=== PATIENT | male | born 1945 | race Caucasian/White ===

== ENCOUNTER → 2023-09-16 | Outpatient (CLI) | payer MEDICARE, BC ==
--- NOTE | 2023-09-16 10:08 | CT ---
EXAMINATION TYPE: CT right knee - DAMION Protocol CT DLP: 827 mGycm, Automated exposure control for dose reduction was used. DATE OF EXAM: 09/16/2023 9:25 AM COMPARISON: Extremity radiograph same day. CLINICAL INDICATION:Male, 78 years old with history of M17.11 UNILATERAL PRIMARY OSTEOARTHRITIS, RIGH T KN; PHH, arthritis TECHNIQUE: Axial images were obtained of the CT right knee - DAMION Protocol, Additional coronal and sa gittal reformatted images and soft tissue and bone window were obtained for review. Contrast used: mL of , (None if empty) Oral contrast used: (None if empty) FINDINGS: The visualized portion of the hips demonstrate mild osteoarthrosis changes with osteophyte formation of the acetabulum. No acute intrapelvic process. The bony structures of the pelvis are intact. The visualized knee demonstrates osteophyte formation of the tibial plateau, the patella and femoral condyles. There is joint space narrowing and subchondral sclerosis most pronounced in the medial asp ect of the right knee. No evidence of fracture. Visualized ankle demonstrates multifocal osteoarthrosis changes with osteophyte formation and mild chela int space narrowing worse in the medial joints bilaterally. Subchondral sclerosis. No evidence of fra ctures. There joint bodies noted within the tibiotalar joint on the left ankle. Scattered colonic diverticula throughout the visualized colon. Bilateral fat-containing inguinal akira ias. IMPRESSION: 1. Moderate to severe osteoarthrosis changes of the knees worse in the right knee and medial aspect. 2. Multiple calcified joint bodies in the left tibiotalar joint.
== END | disposition home or self-care (01) ==
LOC: RADCTMAIN 08:16
PROVIDERS: ATTEND Orthopaedic Surgery
DX: M17.0 Bilateral primary osteoarthritis of knee (principal); M25.872 Other specified joint disorders, left ankle and foot

== ENCOUNTER → 2023-09-16 | Outpatient (CLI) | payer MEDICARE, BC ==
[2023-09-16 10:24] LABS: Partial Thromboplastin Time 26.2 sec (22.0-30.0); Prothrombin Time 10.8 sec (10.0-12.5)
[2023-09-16 15:35] LABS: HCT 37.6 % (39.6-50.0); HGB 12.3 g/dL (13.0-17.0); MCH 29.9 pg (27.0-32.0); MCHC 32.7 g/dL (32.0-37.0); MCV 91.5 FL (80.0-97.0); Mean Platelet Volume 10.1 FL (9.5-12.2); NRBC Per 100 WBC 0 X 10*3/uL (0.00-0.01); Platelet Count 386 X 10*3/uL (140-440); RBC 4.11 X 10*6/uL (4.40-5.60); RDW 13.4 % (11.5-14.5); WBC 6.96 X 10*3/uL (4.50-10.00)
[2023-09-16 15:53] LABS: ALT 61 U/L (10-49); AST 28 U/L (14-35); Albumin 4.2 g/dL (3.8-4.9); Albumin/Globulin Ratio 1.68 Ratio (1.60-3.17); Alkaline Phosphatase 161 U/L (41-126); BUN/Creat Ratio 14.82 Ratio (12.00-20.00); Blood Urea Nitrogen 16.3 mg/dL (9.0-27.0); Calcium 9.8 mg/dL (8.7-10.3); Carbon Dioxide 23.5 mmol/L (21.6-31.8); Chloride 102 mmol/L (96-109); Globulin 2.5 g/dL (1.6-3.3); Glucose 177 mg/dL (70-110); Potassium 4.3 mmol/L (3.5-5.5); Sodium 140 mmol/L (135-145); Total Bilirubin 0.2 mg/dL (0.3-1.2); Total Protein 6.7 g/dL (6.2-8.2)
== END | disposition home or self-care (01) ==
LOC: LABPAT 08:56
PROVIDERS: ATTEND Orthopaedic Surgery
DX: Z01.812 Encounter for preprocedural laboratory examination (principal); Z22.322 Carrier or suspected carrier of Methicillin resistant Staphylococcus aureus; M17.11 Unilateral primary osteoarthritis, right knee; E11.9 Type 2 diabetes mellitus without complications; I25.2 Old myocardial infarction; R94.31 Abnormal electrocardiogram [ECG] [EKG]
CPT/HCPCS: 36415; 80053; 83036; 85027; 85610; 85730; 87070; 93005

== ENCOUNTER 2023-10-04 05:40 | Day surgery (SDC) | payer MEDICARE, BC ==
[2023-10-04] MEDS ORDERED: LIDOCAINE 1% (10MG/ML) FOR IV START INTRADERMA PRN (05:55)
[2023-10-04] MEDS ORDERED: TRANEXAMIC 1,000 MG/100ML-NACL 1,000 MG in SALINE 1 100ML.BAG IVPB PRN (06:00)
[2023-10-04] MEDS ORDERED: ONDANSETRON 4 MG/2 ML VIAL IVP PRN ×2 (06:00→09:28)
[2023-10-04] MEDS ORDERED: TRANEXAMIC 1,000 MG/100ML-NACL 1,000 MG in SALINE 1 100ML.BAG IV PRN (06:00)
[2023-10-04] MEDS ORDERED: FAMOTIDINE 20 MG/2 ML VIAL IVP PRN (06:00)
[2023-10-04] MEDS: LACTATED RINGERS 1,000 ML IV ONE ×2 (06:24→10:49)
[2023-10-04] MEDS: oxyCODONE ER 10 MG TAB.ER.12H PO PRN (06:25)
[2023-10-04] MEDS: DOCUSATE 100 MG CAP PO PRN (06:25)
[2023-10-04] MEDS: ACETAMINOPHEN TAB 500 MG TAB PO PRN (06:25)
[2023-10-04] MEDS: DEXAMETHASONE SOD PHOSPHATE 10 MG/ML 1 ML VIAL IV PRN (06:49)
[2023-10-04] MEDS: KETOROLAC 15 MG/ML 1 ML VIAL IVP PRN (06:49)
[2023-10-04] MEDS: ONDANSETRON 4 MG/2 ML VIAL IVP ONE (06:49)
[2023-10-04] MEDS ORDERED: MIDAZOLAM 2 MG/2 ML VIAL IV PRN (07:00)
[2023-10-04] MEDS ORDERED: HYDROmorphone 0.5 MG/0.5 ML SYRINGE IVP PRN ×4 (07:00→09:28)
[2023-10-04] MEDS: MIDAZOLAM 2 MG/2 ML VIAL IVP ONE (07:02)
--- NOTE | 2023-10-04 07:16 | P.ANPRN ---
Procedure Note - Anesthesia - Nerve Block Performed Right [place] Single Time Out Performed: Yes Date of Procedure: 10/04/23 Procedure Start Time: 07:01 Procedure Stop Time: 07:05 Location of Patient: PreOp Indication: Acute Post-Operative Pain, Analgesia, Requested by Surgeon Sedation Type: Sedate with meaningful contact maintained Preparation: Sterile Prep Position: Left Lateral Catheter: None Needle Types: Pajunk Needle Gauge: 21 Ultrasound used to visualize needle placement: Yes Ultrasound used to observe medication spread: Yes Injectate: 0.5% Ropivacaine (see comment for volume) ([id number] [id number]. AttemptX1) Blood Aspirated: No Pain Paresthesia on Injection Noted: No Resistance on Injection: Normal Image Stored and Saved: Yes Events: Uneventful and Well Tolerated
--- NOTE | 2023-10-04 07:18 | P.ANPRN ---
Procedure Note - Anesthesia - Nerve Block Performed Right Adductor Canal Single Time Out Performed: Yes Date of Procedure: 10/04/23 Procedure Start Time: :06 Procedure Stop Time: 07:10 Location of Patient: PreOp Indication: Acute Post-Operative Pain, Analgesia, Requested by Surgeon Sedation Type: Sedate with meaningful contact maintained Preparation: Sterile Prep Position: Supine Catheter: None Needle Types: Pajunk Needle Gauge: 21 Ultrasound used to visualize needle placement: Yes Ultrasound used to observe medication spread: Yes Injectate: 0.5% Ropivacaine (see comment for volume) ([id number]. AttemptX1) Blood Aspirated: No Pain Paresthesia on Injection Noted: No Resistance on Injection: Normal Image Stored and Saved: Yes Events: Uneventful and Well Tolerated
[2023-10-04] MEDS ORDERED: NEOSTIGMINE 1 MG/ML 10 ML VIAL ONE (07:29)
[2023-10-04] MEDS ORDERED: SUCCINYLCHOLINE CHLORIDE 200 MG/10 ML VIAL IV ONE (07:29)
[2023-10-04] MEDS ORDERED: fentaNYL (PF) 50 MCG/ML 2 ML AMP ONE (07:29)
[2023-10-04] MEDS ORDERED: HYDROmorphone (PF) 1 MG/ML ONE (07:29)
[2023-10-04] MEDS ORDERED: TRANEXAMIC 1,000 MG/100ML-NACL PREMIX BAG ONE (07:29)
[2023-10-04] MEDS ORDERED: ROCURONIUM 10 MG/ML (5 ML VIAL) IV ONE (07:29)
[2023-10-04] MEDS ORDERED: PROPOFOL 10 MG/ML 20 ML VIAL IV ONE (07:29)
[2023-10-04] MEDS ORDERED: ePHEDrine 50 MG/ML 1 ML VIAL ONE (07:29)
[2023-10-04] MEDS ORDERED: LIDOCAINE 1% INJ 10MG/ML (20 ML MDV) ONE (07:29)
[2023-10-04] MEDS ORDERED: ROPIVACAINE 5 MG/ML 30 ML VIAL ONE (07:29)
[2023-10-04] MEDS ORDERED: GLYCOPYRROLATE 0.2 MG/ML 2 ML VIAL ONE (07:29)
[2023-10-04] MEDS ORDERED: DEXAMETHASONE SOD PHOSPHATE 4 MG/ML 1 ML VIAL ONE (07:29)
[2023-10-04] MEDS: ROPIVACAINE/EPI/CLONIDINE/KET 50 ML SYRINGE MISCELLANE PRN (08:17)
[2023-10-04] MEDS ORDERED: traMADol 50 MG TAB PO PRN (09:28)
[2023-10-04] MEDS ORDERED: NA PHOS,M-B/NA PHOS,DI-BA 133 ML ENEMA RECTAL PRN (09:28)
[2023-10-04] MEDS ORDERED: bisacodyL 10 MG SUPP RECTAL PRN (09:28)
[2023-10-04] MEDS ORDERED: ACETAMINOPHEN TAB 325 MG TAB PO PRN (09:28)
[2023-10-04] MEDS ORDERED: MAGNESIUM HYDROXIDE 2,400 MG/30 ML CUP PO PRN (09:28)
[2023-10-04] MEDS ORDERED: NALOXONE 0.4 MG/ML 1 ML VIAL IV PRN (09:28)
[2023-10-04] MEDS ORDERED: HYDROcodone/APAP 7.5-325MG 1 EACH TAB PO PRN (09:31)
--- NOTE | 2023-10-04 09:52 | P.OP ---
Date of Procedure: 10/04/23 Preoperative Diagnosis: severe right knee osteoarthritis Postoperative Diagnosis: same Procedure(s) Performed: 1. Right total knee arthroplasty 2. Computer assisted musculoskeletal navigation using CT/MRI images Implants: 1. Vilma Triathlon CR Femur Size #5 2. Vilma Triathlon [place] Tibial Base Size #5 3. Haskins Triathlon CS poly Size #9 4. Haskins Triathlon all poly patella, Size #35 Anesthesia: JAYDENA, regional Surgeon: Jesus Thompson Affirmative Action Specialist #1: Jono Reveles Estimated Blood Loss (ml): 100 IV fluids (ml): 900 Pathology: none sent Condition: stable Disposition: PACU Indications for Procedure: I met with the patient preoperatively in the office setting and discussed treatment of their symptomatic knee arthritis. They failed a long course of nonsurgical treatment and elected to proceed with an elective total knee replacement. I discussed the potential risks and complications at length and gave them ample time to ask questions. Risks discussed included: risks from anesthesia, superficial site surgical infection, acute and/or chronic periprosthetic joint infection, delayed wound healing, drainage, wound necrosis, instability, stiffness, stiffness requiring manipulation and/or revision surgery, damage to local blood vessels or nerves, aseptic loosening of the implants, extensor mechanism issues including disruption, patellar maltracking, avascular necrosis etc., continued or worsened knee pain, generalized dissatisfaction with surgical outcome, need for revision surgery, an inability to regain preinjury level of function, DVT, PE, other medical complications, and possibly loss of life or limb. The patient voiced their understanding that while these are the most common complications other less common complications are possible. They provided both their verbal and written consent to go forward with surgery. Description of Procedure: The patient was identified in preoperative holding and the correct operative extremity was verified and marked with a marker. I reviewed the consent form with the patient at length. All of their questions were answered. The patient was given a block by anesthesia. They were then brought back to the operating room. They were transferred onto the operating room table where a general anesthetic, preoperative antibiotics, and tranexamic acid were administered by anesthesia. A tourniquet was applied to the proximal aspect of the operative extremity. The contralateral extremity was padded under the heel and secured to the operating room table with a nonsterile blue towel and tape. The ipsilateral arm was carefully draped across the patient's chest and secured with a pillow and foam. A post was applied over the lateral aspect of the ipsilateral thigh and a bolster was placed under the ipsilateral foot. I verified that the operative extremity was stable and the knee was flexed to 90. The operative extremity was then placed in a leg hendrix, nonsterile drapes were applied, and t he extremity was prepped and draped sterilely in the standard sterile fashion. Prior to starting surgery timeout was performed identifying the correct patient, operative extremity, and procedure. The leg was then elevated, exsanguinated with an Esmarch bandage, and the tourniquet was inflated. An anterior midline incision was made sharply with a scalpel. Once I had dissected deep to the superficial fascial layer medial and lateral flaps were elevated. A medial parapatellar arthrotomy was created. Upon opening the knee joint there were diffuse arthritic changes in all 3 compartments. The anterior horn of the medial meniscus were sharply released and a medial release was performed around the posterior medial corner of the knee to facilitate retractor placement. The fat pad was excised with electrocautery. The patella was found to be severely arthritic and a provisional cut was made with a sagittal saw to facilitate mobilization of the extensor mechanism during the procedure. Re mnants of the ACL and PCL were then excised from the notch. 4 mm pins were then placed within the incision in the medial distal femur and proximal tibia. Arrays were applied to the pins and I verified they were completely tightened. The knee was then registered with the Just[employer] robot and manipulations in implant position were made to balance the knee and opitmize implant position. Using the Lawrence robotic saw all cuts were made in accordance with our plan. After all bony fragments had been removed the cuts were verified with the planar probe. The tibia was then subluxed forward and sized. The knee was brought into flexion and a lamina car wrecker was placed to allow removal of the meniscal remnants both medially and laterally as well as posterior osteophytes. Local anesthetic was then infiltrated around the joint capsule. Trial implants were then placed within the knee. Range of motion and collateral ligament tension was then evaluated. Adjustments in implant size and position were then made accordingly. Once the knee was felt to be appropriately balanced the Lawrence pins were removed. The patella was then recut, sized, and punched. A trial patellar button was then placed. With the trial components in place, the patella tracked midline. The femur was then drilled and the trial component removed. The trial tibial component was then appropriately rotated, pinned, and prepared for the keel. All trial components were then removed from the knee. The knee was thoroughly irrigated with pulsatile lavage. Cement was prepared via vacuum mixing in a bowl on the back table. I then hand pressurized cement into the femur and tibia and placed the implants beginning with the tibial base tray and poly liner, femoral component, and finally the patellar button. All extruded cement was removed including from the pin sites. Once the cement had hardened the knee was evaluated one final time with the final polyethylene liner in place. The knee had full extension and flexion and felt stable to varus and valgus stress throughout the arc of motion. The tourniquet was released and with the tourniquet down the patella tracked midline. All bleeders were controlled with electrocautery. The knee was then soaked for 3 minutes with a dilute Betadine soak. The knee was thoroughly irrigated using 3 L of sterile saline and pulsatile lavage. The extensor mechanism was then reapproximated using pop off Vicryl sutures followed by a running barbed suture. The knee was then closed in layers with a 0 strata fix for the deep fascial layer, 2-0 strata fix for the superficial subcutaneous layer and Monocryl and Steri-Strips for the skin. A sterile dressing was applied. I verified that all instrument, sponge, and sharp counts were correct. The patient was then transferred off the operating room table, extubated, and brought to recovery having tolerated the procedure well. Jono Reveles PA-C was required as a skilled warehouse assistant due to the complexity of surgery for patient positioning, draping, exposure, retraction, closure of wound, and application of dressing. PLAN: The patient can weight-bear as tolerated on the operative extremity. DVT prophylaxis with aspirin 81 mg twice a day based on preoperative risk stratification. Internal medicine for perioperative medical management. 2 doses of post-operative antibiotics. Physical therapy for gait training. Follow-up in the office in 2 weeks for wound check and x-rays of the knee including an AP and lateral.
--- NOTE | 2023-10-04 10:42 | XR ---
EXAMINATION TYPE: XR knee limited RT DATE OF EXAM: 10/04/2023 10:12 AM CLINICAL INDICATION:Male, 78 years old with history of Evaluation for Postop abnormality and alignmen t; PHH COMPARISON: None. TECHNIQUE: XR knee limited RT; examined in Frontal, lateral projections. FINDINGS: Status post total knee arthroplasty changes with hardware in appropriate alignment and in tact. No evidence of fracture. Subcutaneous lucencies and lucencies within the joint consistent with surgical changes. IMPRESSION: Status post total knee arthroplasty changes with hardware intact and appropriate alignment. No fractu res identified.
[2023-10-04] MEDS: DEXAMETHASONE SOD PHOSPHATE 4 MG/ML 1 ML VIAL IV ONE (16:37)
[2023-10-04] MEDS: LACTATED RINGERS 1,000 ML IV SCH ×2 (16:38→16:39)
[2023-10-04] MEDS: HYDROcodone/APAP 7.5-325MG 1 EACH TAB PO PRN (17:20)
[2023-10-04] MEDS: ASPIRIN 81 MG PO SCH (21:25)
[2023-10-04] MEDS: SENNOSIDES-DOCUSATE SODIUM 1 EACH TAB PO SCH (21:25)
[2023-10-05 07:42] VITALS: BP 118/84; PULSE 77; RESP 18; TEMP 97.8
--- NOTE | 2023-10-05 07:56 | P.DS ---
Providers Attending physician: Jesus Thompson Consults: 10/04/23 09:28 Consult Physician Routine Consulting Provider: Beverley Javed Consult Reason/Comments: post op medical management Do you want consulting provider notified?: Yes Primary care physician: Luan Oconnor [facility] Course: The patient is a very pleasant 70-year-old male who was admitted under my care yesterday for an elective total knee replacement. Surgery was transferred to the orthopedic floor. Postoperative x-rays were acceptable. He was seen on postoperative day #1 and was doing well. His dressing was intact. There is mild swelling. Motor and sensory function are intact. The patient has not yet been up with physical therapy or internal medicine has not seen him yet. The patient will plan to discharge home later today if he passes physical therapy and his pain is controlled. He was started on aspirin for DVT prophylaxis. He received 2 doses of postoperative antibiotics. Plan - Discharge Summary Discharge Rx Participant: No New Discharge Prescriptions: New HYDROcodone/APAP 5-325MG [[place] 5-325] 1 - 2 tab PO Q6HR PRN #32 tab PRN Reason: Pain Aspirin 81 mg PO BID #60 tab Docusate [Colace] 100 mg PO BID #60 capsule Diclofenac Sodium [Voltaren] 75 mg PO BID #60 tab Omeprazole [PriLOSEC] 40 mg PO DAILY #30 cap No Action Multivitamins, Thera [Multivitamin (formulary)] 1 tab PO DAILY Doxazosin [Cardura] 2 mg PO DAILY Pantoprazole Sodium 40 mg PO DAILY Famotidine 20 mg PO BID Celecoxib 200 mg PO DAILY amLODIPine [Norvasc] 10 mg PO DAILY Losartan [Cozaar] 100 mg PO DAILY Psyllium (Unk) 1 dose PO DAILY Acetaminophen/Diphenhydramine [Tylenol PM 500-25mg] 1 tab PO HS PRN PRN Reason: Insomnia Discharge Medication List Acetaminophen/Diphenhydramine [Tylenol PM 500-25mg] 1 tab PO HS PRN 10/01/23 [History] Celecoxib 200 mg PO DAILY 10/01/23 [History] Doxazosin [Cardura] 2 mg PO DAILY 10/01/23 [History] Famotidine 20 mg PO BID 10/01/23 [History] Losartan [Cozaar] 100 mg PO DAILY 10/01/23 [History] Multivitamins, Thera [Multivitamin (formulary)] 1 tab PO DAILY 10/01/23 [History] Pantoprazole Sodium 40 mg PO DAILY 10/01/23 [History] Psyllium (Unk) 1 dose PO DAILY 10/01/23 [History] amLODIPine [Norvasc] 10 mg PO DAILY 10/01/23 [History] Aspirin 81 mg PO BID #60 tab 10/05/23 [Rx] Diclofenac Sodium [Voltaren] 75 mg PO BID #60 tab 10/05/23 [Rx] Docusate [Colace] 100 mg PO BID #60 capsule 10/05/23 [Rx] HYDROcodone/APAP 5-325MG [[place] 5-325] 1 - 2 tab PO Q6HR PRN #32 tab 10/05/23 [Rx] Omeprazole [PriLOSEC] 40 mg PO DAILY #30 cap 10/05/23 [Rx] Follow up Appointment(s)/Referral(s): Jesus Thompson MD [Medical Doctor] - 2 Weeks Activity/Diet/Wound Care/Special Instructions: 1. Weight-bear as tolerated on your operative extremity unless instructed otherwise. Use a walker or other assistive device to ambulate. 2. Leave surgical dressing in place. If your dressing becomes saturated with blood, there is drainage, or the dressing becomes loose please contact the office. 3. It is okay to shower with your surgical dressing, but do not submerge in water (no hot tubs, bath's, swimming etc.) 4. Make sure to take her blood clot prevention medication as prescribed (aspirin, Eliquis, Xarelto, and Plavix are commonly prescribed medications for blood clot prevention) 5. While taking [place] or Percocet for pain make sure you're taking a stool softener (Colace) and drink lots of water. 6. Keep all follow-up appointments as scheduled. You will usually be seen in 1-2 weeks following surgery. 7. Please contact the office with any questions or concerns [phone] Discharge Disposition: HOME WITH HOME HEALTH SERVICES
[2023-10-05] MEDS ORDERED: MULTIVITAMINS, THERA 1 EACH TAB PO SCH (09:00)
[2023-10-05] MEDS: FAMOTIDINE 20 MG TAB PO SCH (09:03)
[2023-10-05] MEDS: LOSARTAN 50 MG TAB PO SCH (09:03)
[2023-10-05] MEDS: MULTIVITAMINS, THERA 1 EACH TAB PO SCH (09:03)
[2023-10-05 09:20] LABS: Basophils # (A) 0.04 X 10*3/uL (0.00-0.10); Basophils % (A) 0.3 %; Eosinophils # (A) 0 X 10*3/uL (0.04-0.35); Eosinophils % (A) 0 %; HCT 31.5 % (39.6-50.0); HGB 10.5 g/dL (13.0-17.0); Lymphocytes % (A) 8.8 %; MCH 29.3 pg (27.0-32.0); MCHC 33.3 g/dL (32.0-37.0); Monocytes % (A) 5.7 %; NRBC Per 100 WBC 0 X 10*3/uL (0.00-0.01); Neutrophils # (A) 13.46 X 10*3/uL (1.80-7.70); Neutrophils % (A) 84.8 %; Platelet Count 221 X 10*3/uL (140-440); RBC 3.58 X 10*6/uL (4.40-5.60); RDW 13.5 % (11.5-14.5); WBC 15.86 X 10*3/uL (4.50-10.00)
[2023-10-05] MEDS: DOXAZOSIN 2 MG TAB PO SCH (11:28)
--- NOTE | 2023-10-05 20:09 | P.CONS ---
History of Present Illness - Reason for Consult Consult date: 10/05/23 - History of Present Illness This is a pleasant 78 year old male with medical history of hypertension, hyperlipidemia, kidney and skin cancer, former smoker and daily alcohol use. Patient is admitted for an elective right knee arthroplasty. Was monitored overnight. Worked with physical therapy today and was cleared for discharge home. Blood pressure running in the 110-120s systolic postoperatively and recommending to patient to hold the losartan and continue amlodipine on discharge. Medically he is doing well and can be discharged home today. REVIEW OF SYSTEMS: CONSTITUTIONAL: No fever, no malaise, no fatigue. HEENT: No recent visual problems or hearing problems. Denied any sore throat. CARDIOVASCULAR: No chest pain, orthopnea, PND, no palpitations, no syncope. PULMONARY: No shortness of breath, no cough, no hemoptysis. GASTROINTESTINAL: No diarrhea, no nausea, no vomiting, no abdominal pain. NEUROLOGICAL: No headaches, no weakness, no numbness. HEMATOLOGICAL: Denies any bleeding or petechiae. GENITOURINARY: Denies any burning micturition, frequency, or urgency. MUSCULOSKELETAL/RHEUMATOLOGICAL: Denies any joint pain, swelling, or any muscle pain. ENDOCRINE: Denies any polyuria or polydipsia. The rest of the 14-point review of systems is negative. PHYSICAL EXAMINATION: GENERAL: The patient is alert and oriented x3, not in any acute distress. Well developed, well nourished. HEENT: Pupils are round and equally reacting to light. EOMI. No scleral icterus. No conjunctival pallor. Normocephalic, atraumatic. No pharyngeal erythema. No thyromegaly. CARDIOVASCULAR: S1 and S2 present. No murmurs, rubs, or gallops. PULMONARY: Chest is clear to auscultation, no wheezing or crackles. ABDOMEN: Soft, nontender, nondistended, normoactive bowel sounds. No palpable organomegaly. MUSCULOSKELETAL: No joint swelling or deformity. EXTREMITIES: No cyanosis, clubbing, or pedal edema. NEUROLOGICAL: Gross neurological examination did not reveal any focal deficits. SKIN: No rashes. Assessment and plan Osteoarthritis postoperative right total knee arthroplasty Hx hypertension currently normotensive postoperative as above recommending to hold losartan continue amlodipine and to monitor BP outpatient, follow up with PCP on discharge Hx hyperlipidemia Gastroesophageal reflux disease Former smoker Chronic alcohol use GI prophylaxis DVT prophylaxis as per primary Full Code Patient is medically stable for discharge. Orthopedics recommending aspirin 81 mg BID on discharge for the next 30 days. Patient to continue on GI prophylaxis. The impression and plan of care has been dictated by Sylvia Granda, Nurse Practitioner as directed. Dr. Denis MD I have performed a history and physical examination and medical decision making of this patient, discussed the same with the dictator, and agree with the dictators assessment and plan as written, documented as a scribe. Based on total visit time, I have performed more than 50% of this visit. Past Medical History Past Medical History: Cancer, GERD/Reflux, Hyperlipidemia, Hypertension Additional Past Medical History / Comment(s): kidney cancer, skin cancer, History of Any Multi-Drug Resistant Organisms: None Reported Past Surgical History: Cholecystectomy, Hernia Repair, Orthopedic Surgery, Tonsillectomy Additional Past Surgical History / Comment(s): hernia x3, cyst removed from kid filiberto, shoulder, Past Anesthesia/Blood Transfusion Reactions: No Reported Reaction Past Psychological History: No Psychological Hx Reported Smoking Status: Former smoker Additional Past Alcohol Use History / Comment(s): 2 beers per day at least Past Drug Use History: None Reported - Past Family History Brother(s) Family Medical History: Cancer Additional Family Medical History / Comment(s): unk Medications and Allergies Home Medications Medication Instructions Recorded Confirmed Type Acetaminophen/Diphenhydramine 1 tab PO HS PRN 10/01/23 10/04/23 History [Tylenol PM 500-25mg] Celecoxib 200 mg PO DAILY 10/01/23 10/01/23 History Doxazosin [Cardura] 2 mg PO DAILY 10/01/23 10/04/23 History Famotidine 20 mg PO BID 10/01/23 10/04/23 History Multivitamins, Thera [Multivitamin 1 tab PO DAILY 10/01/23 10/01/23 History (formulary)] Pantoprazole Sodium 40 mg PO DAILY 10/01/23 10/04/23 History Psyllium (Unk) 1 dose PO DAILY 10/01/23 10/04/23 History Aspirin 81 mg PO BID #60 tab 10/05/23 Rx Diclofenac Sodium [Voltaren] 75 mg PO BID #60 tab 10/05/23 Rx Docusate [Colace] 100 mg PO BID #60 capsule 10/05/23 Rx HYDROcodone/APAP 5-325MG [[place] 1 - 2 tab PO Q6HR PRN #32 tab 10/05/23 Rx 5-325] Losartan [Cozaar] 50 mg PO DAILY #0 10/05/23 10/04/23 Rx Omeprazole [PriLOSEC] 40 mg PO DAILY #30 cap 10/05/23 Rx Allergies Allergy/AdvReac Type Severity Reaction Status Date / Time Acnkvyf-[id number]-WyZ Reductase AdvReac Unknown Verified 10/04/23 06:21 Inhibitor Physical Exam Vitals: Vital Signs Temp Pulse Resp BP BP Pulse Ox 10/05/23 07:37 97.8 F 77 18 118/84 94 L 10/05/23 01:45 97.9 F 82 15 146/74 96 10/04/23 19:06 97.9 F 86 18 157/78 96 10/04/23 15:13 97.6 F 88 17 146/88 95 10/04/23 14:45 86 12 134/82 100 10/04/23 14:15 83 12 132/78 100 10/04/23 13:45 84 12 131/73 99 10/04/23 13:15 94 16 140/76 98 10/04/23 12:43 87 12 142/80 99 10/04/23 12:13 90 16 133/75 94 L 10/04/23 11:43 85 12 134/70 96 10/04/23 11:28 88 12 132/69 96 10/04/23 11:13 81 12 124/70 95 10/04/23 10:58 82 12 133/70 95 10/04/23 10:43 85 12 133/68 95 10/04/23 10:28 84 19 131/65 95 10/04/23 10:13 91 16 134/63 94 L 10/04/23 09:58 85 14 135/68 95 10/04/23 09:43 97.3 F L 93 16 132/68 93 L Intake and Output 10/04/23 10/05/23 10/05/23 22:59 06:59 14:59 Other: Voiding Method Toilet # Voids 2 3 Weight 93.5 kg Results CBC & Chem 7: 10/05/23 06:15 Assessment and Plan Time with Patient: Less than 30
== END 2023-10-05 11:21 | disposition home health service (06) ==
LOC: OR 05:40 → 4SSUR 09:33 → OR 10-05 11:21
PROVIDERS: ATTEND Orthopaedic Surgery
DX: M17.11 Unilateral primary osteoarthritis, right knee (principal); G89.18 Other acute postprocedural pain; E78.2 Mixed hyperlipidemia; I10 Essential (primary) hypertension; I71.21 Aneurysm of the ascending aorta, without rupture; K21.9 Gastro-esophageal reflux disease without esophagitis; J45.30 Mild persistent asthma, uncomplicated; Z79.899 Other long term (current) drug therapy; Z88.8 Allergy status to other drugs, medicaments and biological substances; Z79.1 Long term (current) use of non-steroidal anti-inflammatories (NSAID); Z79.82 Long term (current) use of aspirin
CPT/HCPCS: 97161; 64999; 64448; 85025; 73560; 27447; C1776; C1713; J2250; J0330; J1100 ×2; J2710; J0690; J2405; J2001; J3010; J1170; J2795; J1885; J2704